=== PATIENT | female | born 1950 | race African-American/Black ===

== ENCOUNTER 2018-12-19 11:36 | Emergency (ER) | payer MEDICARE, OTHER ==
[~2018-12-19] VITALS: Ht 162.6 cm; Wt 62.0 kg
[~2018-12-19 11:36] MED LIST: AMLO5TAB4; ASPI-986; ATEN-42; PRAV40TA; WARF1TAB46 PO
[2018-12-19] MEDS ORDERED: IBUPROFEN 600MG TABLET PO ONE (12:30)
[2018-12-19] MEDS ORDERED: HYDROCODONE/ACETAMINOPHEN 5/325MG TABLET PO ONE (12:30)
[2018-12-19 12:37] VITALS: BP 166/86
[2018-12-19] MEDS ORDERED: CLINDAMYCIN HCL 150MG CAPSULE PO SCH (18:00)
== END 2018-12-19 12:57 | disposition home or self-care (01) ==
LOC: ER 11:36
DX: K04.7 Periapical abscess without sinus (principal); R68.84 Jaw pain; K02.9 Dental caries, unspecified; I10 Essential (primary) hypertension; I25.2 Old myocardial infarction; Z86.718 Personal history of other venous thrombosis and embolism; Z98.890 Other specified postprocedural states; Z88.0 Allergy status to penicillin; Z79.899 Other long term (current) drug therapy
CPT/HCPCS: 99284

== ENCOUNTER 2018-12-29 16:18 | Inpatient (IN) | payer MEDICARE, OTHER ==
[~2018-12-29] VITALS: Ht 162.6 cm; Wt 67.7 kg
[2018-12-29] MEDS ORDERED: ONDANSETRON HCL 4MG/2ML INJ IV STA (20:34)
[2018-12-29] MEDS ORDERED: MORPHINE SULFATE 4 MG/ML CPJ (NOT FOR IM USE) IV STA (20:34)
[2018-12-29] MEDS ORDERED: CLONIDINE 0.2MG TABLET PO ONE (20:45)
[2018-12-29] MEDS ORDERED: ASPIRIN 81MG TABLET PO ONE (20:45)
[2018-12-29 21:36] LABS: BASOPHILS % 0.5 % (0.0-2.0); EOSINOPHILS % 1.8 % (0.0-5.0); HEMATOCRIT. 36.2 % (36.0-48.0); HEMOGLOBIN. 11.7 g/dL (12.0-16.0); MEAN CORPUSCULAR HEMOGLOBIN 27.5 pg (28.0-32.0); MEAN CORPUSCULAR VOLUME 85.3 fL (81.0-99.0); MEAN PLATELET VOLUME 9.6 fl (7.4-10.4); MONOCYTES % 6.7 % (2.0-8.0); PLATELET 265 x1000/uL (130-400); RED BLOOD CELL COUNT 4.24 mill/uL (4.2-5.4); RED CELL DISTRIBUTION WIDTH 13.7 % (11.6-14.6)
[2018-12-29 21:41] LABS: CHLORIDE 108 mEq/L (98-107)
[2018-12-29 21:44] LABS: PARTIAL THROMBOPLASTIN TIME 27.9 sec (23.4-31.0)
[2018-12-29] MEDS ORDERED: ENOXAPARIN 40MG/0.4ML SYR SUBCUT SCH (22:45)
[2018-12-29] MEDS ORDERED: MAGNESIUM/ALUMINUM HYDROXIDE/SIMETHICONE 30ML UDC PO PRN (22:45)
[2018-12-29] MEDS ORDERED: ONDANSETRON HCL 4MG/2ML INJ IV PRN (22:45)
[2018-12-29] MEDS ORDERED: ACETAMINOPHEN 325MG TABLET PO PRN (22:45)
[2018-12-29] MEDS ORDERED: IPRATROPIUM/ALBUTEROL 0.5-3(2.5)MG/3ML NEB INH PRN (22:45)
[2018-12-29] MEDS ORDERED: CLONIDINE 0.1MG TABLET PO PRN (22:45)
[2018-12-30 01:29] LABS: CHLORIDE 110 mEq/L (98-107)
[2018-12-30] MEDS: HYDROCODONE/ACETAMINOPHEN 5/325MG TABLET PO PRN ×2 (04:40→18:53)
[2018-12-30 06:09] LABS: CLARITY URINE CLEAR (CLEAR); COLOR URINE YELLOW (YELLOW); KETONES URINE NEGATIVE (NEGATIVE); LEUKOCYTE ESTERASE URINE NEGATIVE (NEGATIVE); NITRITE URINE NEGATIVE (NEGATIVE); OCCULT BLOOD URINE NEGATIVE (NEGATIVE); PROTEIN URINE NEGATIVE (NEGATIVE); SPECIFIC GRAVITY URINE 1.017 (1.005-1.030); UROBILINOGEN URINE 0.2 E.U./dL (0.2-1.0)
[2018-12-30 06:18] LABS: BASOPHILS % 0.5 % (0.0-2.0); EOSINOPHILS % 2.5 % (0.0-5.0); HEMATOCRIT. 32.4 % (36.0-48.0); HEMOGLOBIN. 10.5 g/dL (12.0-16.0); LYMPHOCYTES % 33.5 % (20.0-50.0); MEAN CORPUSCULAR HEMOGLOBIN 27.4 pg (28.0-32.0); MEAN CORPUSCULAR VOLUME 84.8 fL (81.0-99.0); MEAN PLATELET VOLUME 9.3 fl (7.4-10.4); NEUTROPHILS % 55.5 % (40.0-76.0); PLATELET 245 x1000/uL (130-400); RED BLOOD CELL COUNT 3.82 mill/uL (4.2-5.4); RED CELL DISTRIBUTION WIDTH 13.3 % (11.6-14.6)
[2018-12-30 06:31] LABS: LDL CHOLESTEROL 87 mg/dL (5-100)
[2018-12-30 06:33] LABS: CREATINE KINASE 46 IU/L (26-192); HDL CHOLESTEROL 49 mg/dL (40-59)
[2018-12-30 06:35] LABS: CREATINE KINASE MB FRACTION < 1.0 ng/mL (0.5-3.6)
[2018-12-30 06:47] LABS: *AMPHETAMINES SCREEN URINE NEGATIVE (NEGATIVE)
[2018-12-30 06:49] LABS: *BARBITURATES SCREEN URINE NEGATIVE (NEGATIVE); *BENZODIAZEPINES SCREEN URINE NEGATIVE (NEGATIVE); *COCAINE SCREEN URINE PRESUMTIVE POSITIVE (NEGATIVE); METHADONE URINE SCREEN NEGATIVE (NEGATIVE); OPIATES URINE SCREEN PRESUMTIVE POSITIVE (NEGATIVE)
[2018-12-30 06:50] LABS: CANNABINOID URINE SCREEN PRESUMTIVE POSITIVE (NEGATIVE); PHENCYCLIDINE URINE SCREEN NEGATIVE (NEGATIVE)
[2018-12-30] MEDS ORDERED: ASPIRIN 81MG EC TABLET PO SCH (09:00)
[2018-12-30] MEDS: AMLODIPINE 5MG TABLET PO SCH (10:47)
[2018-12-30] MEDS: ASPIRIN 81MG EC TABLET PO SCH (10:48)
[2018-12-30 11:05] LABS: T4 FREE 0.92 ng/dL (0.76-1.46)
[2018-12-30 11:23] LABS: FOLIC ACID (FOLATE) SERUM 8.8 ng/mL (>5.38)
[2018-12-30 14:51] LABS: CREATINE KINASE 42 IU/L (26-192)
[2018-12-30 14:52] LABS: CREATINE KINASE MB FRACTION < 1.0 ng/mL (0.5-3.6)
[2018-12-30 17:30] VITALS: BP 134/56
[2018-12-30] MEDS ORDERED: WARFARIN SODIUM 5MG TABLET PO SCH (18:00)
[2018-12-30 18:10] VITALS: BP 134/56
[2018-12-30] MEDS ORDERED: CLIN300C11 MT (19:34)
[2018-12-30] MEDS ORDERED: IBUP-2029 MT (19:34)
[2018-12-30 20:00] VITALS: BP 121/63
[2018-12-30] MEDS: ATORVASTATIN CALCIUM 40MG TABLET PO SCH (20:18)
[2018-12-30 23:58] VITALS: BP 131/71
[2018-12-31 04:00] VITALS: BP_SYST 121; BP_SYST 131; BP_DIAS 69; BP_DIAS 71
[2018-12-31] MEDS: HYDROCODONE/ACETAMINOPHEN 5/325MG TABLET PO PRN ×3 (05:18→22:17)
[2018-12-31 06:51] LABS: PROTHROMBIN TIME 9.9 sec (9.1-11.1)
[2018-12-31 07:11] LABS: BASOPHILS % 0.6 % (0.0-2.0); EOSINOPHILS % 2.7 % (0.0-5.0); HEMATOCRIT. 32.9 % (36.0-48.0); HEMOGLOBIN. 10.8 g/dL (12.0-16.0); LYMPHOCYTES % 28.4 % (20.0-50.0); MEAN CORPUSCULAR HEMOGLOBIN 27.9 pg (28.0-32.0); MEAN CORPUSCULAR VOLUME 85.2 fL (81.0-99.0); MONOCYTES % 6.5 % (2.0-8.0); NEUTROPHILS % 61.8 % (40.0-76.0); PLATELET 240 x1000/uL (130-400); RED BLOOD CELL COUNT 3.85 mill/uL (4.2-5.4); RED CELL DISTRIBUTION WIDTH 13.9 % (11.6-14.6)
[2018-12-31 08:52] VITALS: BP 133/79
[2018-12-31 08:52] LABS: CHLORIDE 110 mEq/L (98-107)
[2018-12-31] MEDS: AMLODIPINE 5MG TABLET PO SCH (10:06)
[2018-12-31] MEDS: ASPIRIN 81MG EC TABLET PO SCH (10:07)
[2018-12-31 12:10] VITALS: BP 142/69
[2018-12-31 16:22] VITALS: BP 165/75
[2018-12-31] MEDS ORDERED: WARFARIN SODIUM 5MG TABLET PO NR (18:00)
[2018-12-31 20:00] VITALS: BP 127/77
[2018-12-31] MEDS: ATORVASTATIN CALCIUM 40MG TABLET PO SCH (20:58)
[2019-01-01] VITALS: BP 149/70
[2019-01-01] MEDS: HYDROCODONE/ACETAMINOPHEN 5/325MG TABLET PO PRN ×2 (02:37→11:34)
[2019-01-01 04:00] VITALS: BP 136/74
[2019-01-01] MEDS ORDERED: ZOLPIDEM TARTRATE 5MG TABLET PO PRN (05:30)
[2019-01-01 09:00] VITALS: BP 139/79
[2019-01-01] MEDS: AMLODIPINE 5MG TABLET PO SCH (09:22)
[2019-01-01] MEDS: ASPIRIN 81MG EC TABLET PO SCH (09:22)
[2019-01-01 12:00] VITALS: BP 146/83
[2019-01-01] MEDS ORDERED: CLINDAMYCIN HCL 150MG CAPSULE PO SCH (14:00)
[2019-01-01] MEDS ORDERED: ATENOLOL 25MG TABLET PO SCH (14:15)
[2019-01-01 14:45] VITALS: BP 140/80
== END 2019-01-01 17:17 | disposition home or self-care (01) | DRG 305 ==
LOC: ER 16:18 → EDBEDREQ 22:15 → ENRESERV 12-30 14:34 → 6WST 12-30 17:07
PROVIDERS: ADMIT Internal Medicine; ATTEND Internal Medicine
DX: I16.1 Hypertensive emergency (principal); I69.354 Hemiplegia and hemiparesis following cerebral infarction affecting left non-dominant side; F12.90 Cannabis use, unspecified, uncomplicated; K04.7 Periapical abscess without sinus; R07.89 Other chest pain; F17.200 Nicotine dependence, unspecified, uncomplicated; F11.90 Opioid use, unspecified, uncomplicated; E03.9 Hypothyroidism, unspecified; F14.90 Cocaine use, unspecified, uncomplicated; D64.9 Anemia, unspecified; I10 Essential (primary) hypertension; I25.2 Old myocardial infarction; Z79.01 Long term (current) use of anticoagulants; Z91.14 Patient's other noncompliance with medication regimen; Z86.718 Personal history of other venous thrombosis and embolism; Z88.0 Allergy status to penicillin; Z79.82 Long term (current) use of aspirin; Z79.899 Other long term (current) drug therapy
CPT/HCPCS: 36415; 70486; 71045; 80048; 80061; 80305; 82550; 82553; 82607; 82728; 82746; 83540; 83550; 83605; 83735; 83880; 84439; 84443; 84481; 84484; 85379; 93005; 93306; 93970; 96374; 96375; 97162; 97166; 99285; J2270; J2405

== ENCOUNTER 2020-03-23 11:32 | Emergency (ER) | payer MEDICARE, OTHER ==
[~2020-03-23] VITALS: Ht 160 cm; Wt 68.0 kg
[~2020-03-23 11:32] MED LIST changes: +CLIN300C11 MT; +IBUP-2029 MT
[2020-03-23 12:30] LABS: BASOPHILS % 0.8 % (0.0-2.0); EOSINOPHILS % 1.4 % (0.0-5.0); HEMATOCRIT. 40.6 % (36.0-48.0); HEMOGLOBIN. 13.1 g/dL (12.0-16.0); LYMPHOCYTES % 26.7 % (20.0-50.0); MEAN CORPUSCULAR HEMOGLOBIN 28.2 pg (28.0-32.0); MEAN CORPUSCULAR VOLUME 87.4 fL (81.0-99.0); MEAN PLATELET VOLUME 9.3 fl (7.4-10.4); MONOCYTES % 7.2 % (2.0-8.0); NEUTROPHILS % 63.9 % (40.0-76.0); PLATELET 218 x1000/uL (130-400); RED BLOOD CELL COUNT 4.65 mill/uL (4.2-5.4)
[2020-03-23 12:32] LABS: CLARITY URINE CLEAR (CLEAR); COLOR URINE DARK YELLOW (YELLOW); KETONES URINE TRACE (NEGATIVE); LEUKOCYTE ESTERASE URINE TRACE (NEGATIVE); NITRITE URINE NEGATIVE (NEGATIVE); OCCULT BLOOD URINE NEGATIVE (NEGATIVE); PROTEIN URINE NEGATIVE (NEGATIVE); SPECIFIC GRAVITY URINE 1.024 (1.005-1.030)
[2020-03-23 12:36] LABS: CHLORIDE 110 mEq/L (98-107)
[2020-03-23] MEDS ORDERED: ATENOLOL 25MG TABLET PO ONE (12:45)
[2020-03-23] MEDS ORDERED: AMLODIPINE 5MG TABLET PO ONE (12:45)
[2020-03-23 13:30] VITALS: BP 128/87
== END 2020-03-23 13:43 | disposition home or self-care (01) ==
LOC: ER 12:02
DX: I10 Essential (primary) hypertension (principal); M79.652 Pain in left thigh
CPT/HCPCS: 36415; 71045; 73552; 80053; 81003; 83880; 84484; 85025; 93005; 99285

== ENCOUNTER 2020-07-05 11:50 | Emergency (ER) | payer MEDICARE, OTHER ==
[~2020-07-05] VITALS: Ht 162.6 cm; Wt 63.0 kg
[2020-07-05] MEDS ORDERED: KETOROLAC 60MG/2ML VIAL IM ONE (12:15)
[2020-07-05 12:31] VITALS: BP 163/83
== END 2020-07-05 13:45 | disposition home or self-care (01) ==
LOC: ER 11:50
DX: T23.001A Burn of unspecified degree of right hand, unspecified site, initial encounter (principal); W86.0XXA Exposure to domestic wiring and appliances, initial encounter; Y93.89 Activity, other specified; Y92.89 Other specified places as the place of occurrence of the external cause; I10 Essential (primary) hypertension; Z86.718 Personal history of other venous thrombosis and embolism; Z79.01 Long term (current) use of anticoagulants; I25.2 Old myocardial infarction; Z79.899 Other long term (current) drug therapy; Z79.82 Long term (current) use of aspirin
CPT/HCPCS: 73130; 96372; 99283; J1885

== ENCOUNTER 2021-09-11 14:32 | Emergency (ER) | payer OTHER ==
[~2021-09-11] VITALS: Ht 162.6 cm; Wt 64.0 kg
[~2021-09-11 14:32] MED LIST changes: -CLIN300C11 MT; +CLIN300C12 MT
[2021-09-11] MEDS ORDERED: MORPHINE SULFATE 4 MG/ML CPJ (NOT FOR IM USE) IV STA (14:54)
[2021-09-11] MEDS ORDERED: ONDANSETRON HCL 4MG/2ML INJ IV STA (14:54)
[2021-09-11] MEDS ORDERED: MORPHINE SULFATE 2 MG/ML CPJ (NOT FOR IM USE) IV NR (15:45)
[2021-09-11] MEDS ORDERED: TOPUD PO (17:19)
[2021-09-11 17:32] VITALS: BP 148/76
== END 2021-09-11 17:33 | disposition home or self-care (01) ==
LOC: ER 14:32
DX: M24.852 Other specific joint derangements of left hip, not elsewhere classified (principal); I10 Essential (primary) hypertension; I25.2 Old myocardial infarction; Z98.890 Other specified postprocedural states; Z79.899 Other long term (current) drug therapy; Z88.0 Allergy status to penicillin
CPT/HCPCS: 73522; 73552; 74176; 96374; 96375; 99284; J2270; J2405

== ENCOUNTER 2023-04-02 15:06 | Emergency (ER) | payer MEDICARE, OTHER ==
[~2023-04-02] VITALS: Ht 162.6 cm; Wt 63.6 kg
[~2023-04-02 15:06] MED LIST changes: +CLIN-194 MT; -CLIN300C12 MT; +TOPUD PO
[2023-04-02 15:23] VITALS: BP 179/85
[2023-04-02] MEDS ORDERED: DOXY100C5 MT (16:10)
[2023-04-02] MEDS ORDERED: AMLO5TAB4 MT (16:10)
[2023-04-02] MEDS ORDERED: IBUP-2029 MT (16:10)
[2023-04-02] MEDS ORDERED: AMLODIPINE 5MG TABLET PO ONE (16:15)
[2023-04-02] MEDS ORDERED: ACETAMINOPHEN 325MG TABLET PO ONE (16:30)
[2023-04-03] MEDS ORDERED: SULF1TAB48 MT (19:28)
== END 2023-04-02 16:44 | disposition home or self-care (01) ==
LOC: ER 15:06
DX: I25.2 Old myocardial infarction (principal); I10 Essential (primary) hypertension; L03.113 Cellulitis of right upper limb; Z88.0 Allergy status to penicillin; Z79.899 Other long term (current) drug therapy; Z79.82 Long term (current) use of aspirin
CPT/HCPCS: 99283

== ENCOUNTER 2023-04-03 17:16 | Emergency (ER) | payer MEDICARE, OTHER ==
[~2023-04-03] VITALS: Ht 165.1 cm; Wt 65.7 kg
[~2023-04-03 17:16] MED LIST changes: +AMLO5TAB4 MT; +DOXY100C5 MT
[2023-04-03 17:39] VITALS: BP 200/81
[2023-04-03] MEDS ORDERED: LIDOCAINE HCL/PF 1% 10 MG/ML 5ML VIAL INFIL ONE (18:45)
[2023-04-03] MEDS ORDERED: BACITRACIN ZINC OINT UDPKT TOP ONE (18:45)
[2023-04-03] MEDS ORDERED: ACETAMINOPHEN 325MG TABLET PO ONE (18:45)
[2023-04-03] MEDS ORDERED: SULF1TAB48 MT (19:28)
== END 2023-04-03 20:20 | disposition home or self-care (01) ==
LOC: ER 17:16
DX: L02.413 Cutaneous abscess of right upper limb (principal); I10 Essential (primary) hypertension; Z79.899 Other long term (current) drug therapy
CPT/HCPCS: 10060; 99283

== ENCOUNTER 2023-11-13 11:12 | Emergency (ER) | payer MEDICARE, OTHER ==
[~2023-11-13] VITALS: Ht 162.6 cm; Wt 66.0 kg
[~2023-11-13 11:12] MED LIST changes: +SULF1TAB48 MT
[2023-11-13 11:24] VITALS: O2SAT 99
[2023-11-13] MEDS ORDERED: ASPIRIN 81MG TABLET PO ONE (12:00)
[2023-11-13 12:20] LABS: BASOPHILS % 0.8 % (0.0-2.0); EOSINOPHILS % 5.5 % (0.0-5.0); HEMATOCRIT. 39.1 % (36.0-48.0); HEMOGLOBIN. 12.6 g/dL (12.0-16.0); LYMPHOCYTES % 33.6 % (20.0-50.0); MEAN CORPUSCULAR HEMOGLOBIN 27.8 pg (28.0-32.0); MEAN CORPUSCULAR HGB CONC 32.1 g/dL (31.0-37.0); MEAN CORPUSCULAR VOLUME 86.4 fL (81.0-99.0); MEAN PLATELET VOLUME 10.1 fl (7.4-10.4); MONOCYTES % 7.1 % (2.0-8.0); PLATELET 239 x1000/uL (130-400); RED BLOOD CELL COUNT 4.53 mill/uL (4.2-5.4); RED CELL DISTRIBUTION WIDTH 14.4 % (11.6-14.6); WHITE BLOOD COUNT 4.7 x1000/uL (4.5-11.0)
[2023-11-13 12:23] VITALS: BP 168/83; PULSE 80; RESP 11; TEMP 99
[2023-11-13] MEDS ORDERED: AMLO5TAB88 MT (13:31)
[2023-11-13 17:30] LABS: ALANINE AMINOTRANSFERASE 21 IU/L (10-49); ALBUMIN 4.3 g/dL (3.2-4.8); ASPARTATE AMINOTRANSFERASE 25 IU/L (<34); BILIRUBIN TOTAL 0.2 mg/dL (0.1-1.0); CARBON DIOXIDE 15 mEq/L (21-32); CHLORIDE 113 mEq/L (98-107); CREATININE 0.8 mg/dL (0.6-1.0); GLUCOSE 88 mg/dL (70-105); POTASSIUM 4.5 mEq/L (3.5-5.1); PROTEIN TOTAL 7.7 g/dL (6.0-8.3); SODIUM 145 mEq/L (136-145); TROPONIN I HIGH SENSITIVITY 6 ng/L (3.0-34); UREA NITROGEN BLOOD 11 mg/dL (9-23)
== END 2023-11-13 13:56 | disposition left against medical advice (07) ==
LOC: ER 11:12
DX: R07.89 Other chest pain (principal); F17.200 Nicotine dependence, unspecified, uncomplicated; Z88.0 Allergy status to penicillin; Z79.899 Other long term (current) drug therapy; Z79.82 Long term (current) use of aspirin; Z86.718 Personal history of other venous thrombosis and embolism
CPT/HCPCS: 36415; 71045; 80053; 83880; 84484; 85025; 93005; 99285

== ENCOUNTER 2024-11-22 13:10 | Emergency (ER) | payer MEDICARE, MEDICAID ==
[~2024-11-22] VITALS: Ht 162.6 cm; Wt 63.0 kg
[~2024-11-22 13:10] MED LIST changes: -AMLO5TAB4; -AMLO5TAB4 MT; +AMLO5TAB5; +AMLO5TAB5 MT; +AMLO5TAB88 MT
[2024-11-22 13:27] VITALS: O2SAT 100
[2024-11-22 13:30] VITALS: BP 159/82; PULSE 93; RESP 16; TEMP 98.3; O2SAT 100
[2024-11-22] MEDS ORDERED: AZIT500T8 MT (15:22)
== END 2024-11-22 15:27 | disposition home or self-care (01) ==
LOC: ER 13:10
DX: J18.9 Pneumonia, unspecified organism (principal); I10 Essential (primary) hypertension; Z79.01 Long term (current) use of anticoagulants; Z79.82 Long term (current) use of aspirin; Z79.899 Other long term (current) drug therapy; Z88.0 Allergy status to penicillin; Z98.890 Other specified postprocedural states
CPT/HCPCS: 71045; 99283

== ENCOUNTER 2024-12-24 11:52 | Emergency (ER) | payer MEDICARE, MEDICAID ==
[~2024-12-24] VITALS: Ht 162.6 cm; Wt 59.0 kg
[~2024-12-24 11:52] MED LIST changes: +AZIT500T8 MT
[2024-12-24 12:06] VITALS: O2SAT 99
[2024-12-24 12:42] LABS: BASOPHILS % 0.7 % (0.0-2.0); EOSINOPHILS % 3.2 % (0.0-5.0); HEMATOCRIT. 34.2 % (36.0-48.0); LYMPHOCYTES % 18.2 % (20.0-50.0); MEAN CORPUSCULAR HEMOGLOBIN 27.9 pg (28.0-32.0); MEAN CORPUSCULAR VOLUME 87.1 fL (81.0-99.0); MEAN PLATELET VOLUME 9.6 fl (7.4-10.4); MONOCYTES % 6.3 % (2.0-8.0); NEUTROPHILS % 71.6 % (40.0-76.0); PLATELET 242 x1000/uL (130-400); RED BLOOD CELL COUNT 3.93 mill/uL (4.2-5.4); RED CELL DISTRIBUTION WIDTH 14.4 % (11.6-14.6); WHITE BLOOD COUNT 6.6 x1000/uL (4.5-11.0)
[2024-12-24 12:49] LABS: CHLORIDE 110 mEq/L (98-107); POTASSIUM 3.6 mEq/L (3.5-5.1); SODIUM 144 mEq/L (136-145)
[2024-12-24 12:50] LABS: CALCIUM 9.3 mg/dL (8.7-10.4); CARBON DIOXIDE 25 mEq/L (21-32)
[2024-12-24 12:55] LABS: GLUCOSE 73 mg/dL (70-105); UREA NITROGEN BLOOD 10 mg/dL (9-23)
[2024-12-24 15:15] LABS: CLARITY URINE CLOUDY (CLEAR); COLOR URINE YELLOW (YELLOW); GLUCOSE URINE NEGATIVE (NEGATIVE); KETONES URINE NEGATIVE (NEGATIVE); LEUKOCYTE ESTERASE URINE 3+ (NEGATIVE); NITRITE URINE NEGATIVE (NEGATIVE); OCCULT BLOOD URINE TRACE (NEGATIVE); PROTEIN URINE NEGATIVE (NEGATIVE); SPECIFIC GRAVITY URINE 1.015 (1.005-1.030)
[2024-12-24 15:28] LABS: BACTERIA URINE 2+; SQUAMOUS EPITHELIAL CELL URINE 1+ /lpf (RARE/1+); WBC URINE 15-25 /hpf (0-2); YEAST URINE NONE SEEN
[2024-12-24] MEDS ORDERED: SULF1TAB47 MT (15:43)
[2024-12-24 16:16] VITALS: BP 160/88; PULSE 82; RESP 18; TEMP 37.1; O2SAT 100
== END 2024-12-24 16:19 | disposition home or self-care (01) ==
LOC: ER 11:52
DX: N39.0 Urinary tract infection, site not specified (principal); I10 Essential (primary) hypertension; Z88.0 Allergy status to penicillin; Z79.899 Other long term (current) drug therapy; Z79.82 Long term (current) use of aspirin; Z98.890 Other specified postprocedural states
CPT/HCPCS: 36415; 80048; 81003; 85025; 99283

== ENCOUNTER 2025-01-07 11:13 | Emergency (ER) | payer MEDICARE, MEDICAID ==
[~2025-01-07] VITALS: Ht 162.6 cm; Wt 61.2 kg
[~2025-01-07 11:13] MED LIST changes: +SULF1TAB47 MT
[2025-01-07 11:21] VITALS: O2SAT 100
[2025-01-07 11:36] VITALS: BP 163/95; PULSE 81; RESP 18; TEMP 36.8; O2SAT 100
[2025-01-07 12:59] LABS: CLARITY URINE TURBID (CLEAR); COLOR URINE YELLOW (YELLOW); GLUCOSE URINE NEGATIVE (NEGATIVE); KETONES URINE TRACE (NEGATIVE); LEUKOCYTE ESTERASE URINE 3+ (NEGATIVE); NITRITE URINE NEGATIVE (NEGATIVE); OCCULT BLOOD URINE NEGATIVE (NEGATIVE); PH URINE 6.5 (4.5-8.0); PROTEIN URINE 1+ (NEGATIVE); SPECIFIC GRAVITY URINE 1.028 (1.005-1.030)
[2025-01-07 13:09] LABS: WBC URINE TNTC /hpf (0-2)
[2025-01-07 13:10] LABS: BACTERIA URINE 4+; SQUAMOUS EPITHELIAL CELL URINE 3+ /lpf (RARE/1+); YEAST URINE NONE SEEN
[2025-01-07] MEDS: CEFTRIAXONE SODIUM 500MG VIAL IM ONE (14:05)
[2025-01-07] MEDS ORDERED: METR-167 MT (14:07)
[2025-01-07] MEDS ORDERED: DOXY100C5 MT (14:09)
[2025-01-07] MEDS ORDERED: AMLO5TAB88 MT (14:19)
[2025-01-07] MEDS ORDERED: NITR100C MT (20:37)
[2025-01-10 19:06] LABS: CHLAMYDIA TRACHOMATIS NAA Negative (Negative); NEISSERIA GONORRHOEAE NAA Negative (Negative)
== END 2025-01-07 14:24 | disposition home or self-care (01) ==
LOC: ER 12:08
DX: N39.0 Urinary tract infection, site not specified (principal); A59.9 Trichomoniasis, unspecified; B96.89 Other specified bacterial agents as the cause of diseases classified elsewhere; I10 Essential (primary) hypertension; Z88.0 Allergy status to penicillin; Z79.899 Other long term (current) drug therapy; Z79.82 Long term (current) use of aspirin; Z98.890 Other specified postprocedural states
CPT/HCPCS: 99284; 87491; 87591; 81003; 87086; 87210; 96372; J0696